=== PATIENT | female | born 1960 | race Caucasian/White ===

== ENCOUNTER → 2017-09-24 | Outpatient (CLI) | payer OTHER ==
[~2017-09-24] MED LIST: ARIXTRA2.5 MG/0.5 SQ; BENADRYL25 MG PO; BYSTOLIC2.5 MG PO; COUMADIN 5 MG TA5 M1 PO; CYMBALTA60 MG PO; FLEXERIL PO; HYDROCODONE-AP1 EAC6 PO; LANSOPRAZOLE30 MG PO; LEVOTHYROXIN0.075 MG PO; LISINOPRIL20 MG PO; NORCO 5-325 TA1 EACH PO; NORVASC2.5 MG PO; OMEPRAZOLE 20 M20 M1 PO; OMEPRAZOLE PO; ONDANSETRON HCL4 M2 PO; PEPCID AC20 M1 PO; SYNTHROID112 MCG PO; TENORMIN25 MG PO; TENORMIN50 MG PO; ZOFRAN ODT4 MG PO
--- NOTE | ~2017-09-24 | EKG ---
[address] [address] ELECTROCARDIOGRAM REPORT Name: VAN SAUL Room #: REG [facility] [id number] Admission: 09/24/17 Attend Phys: Laurie العراقي, Discharge: Date of : 56 Report #: [id number] THIS REPORT FOR: //name// [facility] Test Date: 2017-09-24 Test Time: 10:18:08 Pat Name: VAN SAUL Department: Room: Gender: F Cell Tender: Derek CHIN : 1960 Requested By: Laurie العراقي Order Number: [id number] MD: Xavier Millard Measurements Intervals [place] Rate: 73 P: 33 [place]: 124 QRS: 34 QRSD: 98 T: 37 QT: 394 QTc: 435 Interpretive Statements Sinus rhythm Compared to ECG 03/23/2016 07:18:43 No significant changes Electronically Signed On 09-24-2017 10:38:33 METALLURGICAL INSPECTOR by Xavier Millard [email or web address] <ELECTRONICALLY SIGNED> By: Xavier Millard MD 09/24/17 1038 Xavier Millard MD /DOTTIE
[2017-09-24 10:28] LABS: INR 1.1; PROTIME 11.1 Seconds (9.3-11.4)
== END ==
LOC: CV 09:39
PROVIDERS: Orthopaedic Surgery Hand Surgery
DX: Z01.818 Encounter for other preprocedural examination (principal); I10 Essential (primary) hypertension; Z79.01 Long term (current) use of anticoagulants

== ENCOUNTER → 2017-12-11 | Outpatient (CLI) | payer OTHER | LOC: CAT 05:53 | DX: Z13.6 Encounter for screening for cardiovascular disorders (principal) ==

== ENCOUNTER → 2019-07-30 | Outpatient (CLI) | payer OTHER ==
[~2019-07-30] VITALS: Ht 162.6 cm; Wt 74.8 kg
[~2019-07-30] MED LIST changes: +ARIXTRA SUBQ; +BYSTOLIC10 MG PO; +COUMADIN 4 MG TA4 M1 PO; +CRESTOR5 MG PO; +LEVO-T100 MCG PO; +NORVASC5 M1 PO; +OMEPRAZOLE40 MG PO; +PLAQUENIL200 MG PO
--- NOTE | 2019-08-01 14:07 | PATH ---
[facility] [address] [place] [address] PATHOLOGY RPT PROCEDURE Name: VAN SAUL ANITHA Room #: REG CL Wilber.#: [id number] Admission: 07/30/19 Date of : 56 Discharge: Report #: [id number] Path Case #: [id number] [facility] Accession Number: [id number] . 01 Material submitted: . colon - RANDOM COLON BIOPSY R/O MICROSCOPIC COLITIS . 01 Clinical history: . Change in bowel habits; R/O microscopic colitis . 02 Diagnosis: Large intestinal mucosa, random, rule out microscopic colitis, endoscopic biopsy: - Mild active colitis. - Negative for microscopic colitis. - Negative for dysplasia or malignancy. 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 02 Comment: Sections of the colonic mucosa designated "random colon" show focal cryptitis, and a moderately cellular lamina propria composed predominantly of lymphocytes and plasma cells and occasional eosinophils. Surface ulceration is not identified. There are no crypt abscesses, granulomas or viral inclusions. The process affects all the fragments with a similar intensity. Given the description, the differential diagnosis includes acute self-limited episode of colitis, mild infectious-type of colitis, medication/drug induced colitis, diverticulitis amongst others. Please correlate with clinical as well as endoscopic findings. 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 02 Electronically signed: . Argelia Hammonds MD, Pathologist NPI- [id number] . 01 Gross description: . The specimen is received in formalin, labeled "Van Saul, random colon biopsy, R/O microscopic colitis". Received are five segments of pale sanchez soft tissue ranging in size from 0.2 to 0.8 cm in maximum dimensions. The specimen is submitted entirely in cassette A1. (CAA; 07/31/2019) QA/QA 07/31/2019 0835 Local . 02 Pathologist provided ICD-10: K52.9 . 02 [place] [address] PATHOLOGY RPT PROCEDURE Name: VAN SAUL Room #: REG [facility] Jimi#: [id number] Admission: 07/30/19 Date of : 56 Discharge: Report #: [id number] Path Case #: [id number] Specimen Comment: A courtesy copy of this report has been sent to [phone] Specimen Comment: [phone] Specimen Comment: Report sent to / DR STEARNS Performed at: [address], [place], [place] [id number] MD Sergio Miller MD Phone: [phone] Performed at: [address] [id number] MD Argelia Hammonds MD Phone: [phone]
--- NOTE | 2019-08-04 11:57 | P ---
[facility] [place] [address] PROCEDURE REPORT Name: VAN SAUL Room #: REG [facility]#: [id number] Admission: 07/30/19 Attend Phys: Bautista Villarreal Discharge: Date of : 56 Report #: [id number] THIS REPORT FOR: //name// CC: Bautista Manjarrez MD DATE OF SERVICE: 07/30/2019 PROCEDURE PERFORMED: Colonoscopy with biopsies. HISTORY OF PRESENT ILLNESS: The patient is a 58-year-old female with a change in bowel habits ever since her laparoscopic cholecystectomy, she has intermittent diarrhea and constipation, both are fairly equal in frequency. She also complains of crampy abdominal pain, typically 3-4 times per week. She denies any blood in her stools. Her last colonoscopy was approximately 10 years ago and reportedly negative. No family history of colon cancer or inflammatory bowel disease. DESCRIPTION OF PROCEDURE: The risks and benefits of the procedure were explained to the patient, those risks including but not limited to bleeding, perforation, the risk of sedation. She understood these risks and gave informed consent. Sedation was given using propofol per anesthesia. Next, a digital rectal exam was initially performed, which was normal. Next, using a standard Olympus colonoscope, the scope was placed in the patient's anus and advanced under direct vision to the cecum. The overall prep was excellent. The cecum and ileocecal valve were normal in appearance. Ascending, transverse, descending and sigmoid colon were all normal. Random biopsies were obtained today to rule out the possibility of microscopic colitis. The rectal mucosa was normal. On retroflexion, no abnormalities were noted. The scope was then withdrawn and the procedure terminated. The patient tolerated the procedure well. IMPRESSION: Normal colonoscopy. RECOMMENDATIONS: 1. Await biopsy results. 2. We discussed a trial of Levsin initially on a p.r.n. basis. If this is not helpful, then consider a trial of Questran for the possibility of bile salt diarrhea. We would recommend repeating colonoscopy in 10 years. [facility] [address] [place] [address] PROCEDURE REPORT Name: VAN SAUL Room #: REG ARLEY Krause#: [id number] Admission: 07/30/19 Attend Phys: Bautista Villarreal Discharge: Date of : 56 Report #: [id number] Thank you for allowing me to participate in her care. <ELECTRONICALLY SIGNED> By: Bautista Frost MD 08/04/19 1157 1206 2115 Bautista Frost MD /nt
== END | disposition home or self-care (01) ==
LOC: GI 08:54
DX: R19.4 Change in bowel habit (principal); K52.9 Noninfective gastroenteritis and colitis, unspecified; I10 Essential (primary) hypertension; K21.9 Gastro-esophageal reflux disease without esophagitis; E78.00 Pure hypercholesterolemia, unspecified; M19.90 Unspecified osteoarthritis, unspecified site; E03.9 Hypothyroidism, unspecified; Z98.890 Other specified postprocedural states; Z79.899 Other long term (current) drug therapy; Z90.710 Acquired absence of both cervix and uterus; Z86.711 Personal history of pulmonary embolism; Z79.01 Long term (current) use of anticoagulants; Z88.0 Allergy status to penicillin; Z88.2 Allergy status to sulfonamides; Z88.8 Allergy status to other drugs, medicaments and biological substances; Z90.49 Acquired absence of other specified parts of digestive tract
CPT/HCPCS: 62110; 62900

== ENCOUNTER → 2020-08-02 | Outpatient (CLI) | payer OTHER | LOC: RAD 09:26 | PROVIDERS: ATTEND Family Medicine | DX: K21.9 Gastro-esophageal reflux disease without esophagitis (principal); K44.9 Diaphragmatic hernia without obstruction or gangrene; J84.10 Pulmonary fibrosis, unspecified ==